=== PATIENT | female | born 1950 | race Caucasian/White ===

== ENCOUNTER → 2017-02-06 | Outpatient (CLI) | payer MEDICARE, OTHER ==
[~2017-02-06] MED LIST: B12,B-12,B 12500 MC1 PO; CALCIUM + D 6001 TAB PO; CAPOTEN25 MG PO; CELEXA40 MG PO; CIPROFLOXACIN500 MG PO; CLONAZEPAM0.125 MG PO; DIFLUCAN150 MG PO; EMETROL; FERROUS SULFAT324 M1 PO; HYDR12.5C PO; LISINOPRIL40 MG PO; LOVASTATIN10 MG PO; MAG-OX 400400 MG PO; METFORMIN500 MG PO; MEVACOR20 MG PO; MUCINEX600 MG PO; MULTI VITAMINS1 TAB PO; PREDNISONE20 MG PO; PRILOSEC10 MG; PRILOSEC20 MG PO; PRILOSEC40 MG PO; PYRIDIUM200 MG PO; Quinapril10 MG PO; VIBRAMYCIN100 MG PO; VITAMIN D1000 IU PO; ZOFRAN ODT4 MG SL; ZOFRAN2 MG/ML
== END | disposition home or self-care (01) ==
LOC: CT 12:57
DX: R91.1 Solitary pulmonary nodule (principal)